=== PATIENT | male | born 1950 | race Caucasian/White ===

== ENCOUNTER 2017-02-09 14:26 | Emergency (ER) | payer OTHER ==
[~2017-02-09] VITALS: Ht 160 cm; Wt 82.0 kg
[2017-02-09 14:46] VITALS: Ht 160 cm; Wt 82.0 kg
[2017-02-09] MEDS ORDERED: HYDROCODONE/APAP (5/325) TAB PO ONE (16:00)
--- NOTE | 2017-02-09 16:26 | ERD ---
ER Documentation Chief Complaint Date/Time DATE: 02/09/17 TIME: 16:24 Chief Complaint Pt with R knee pain and back pain after fall in shower. no ko. HPI 66-year-old male status post slip and fall in the shower complaining of right knee pain, low back pain. Patient states he has a diffuse achy pain across the right anteromedial knee, worse with extension and better left pelvis region. He is able to weight-bear but with pain. Denies saddle anesthesia or loss of bowel bladder function. He denies any head injuries or neck pain. ROS All systems reviewed and are negative except as per history of present illness. Medications Home Meds Active Scripts Hydrocodone/Acetaminophen ([place] 5-325 Tablet) 1 Each Tablet, 1 TAB PO Q6H Y for PAIN, #10 TAB Prov:DEMETRIUS DELACRUZ PA-C 02/09/17 PMhx/Soc Medical and Surgical Hx: pt denies Medical Hx, pt denies Surgical Hx Hx Alcohol Use: No Hx Substance Use: No Hx Tobacco Use: No Physical Exam Vitals Vital Signs Date Time Temp Pulse Resp B/P Pulse Ox O2 Delivery O2 Flow Rate FiO2 02/09/17 14:46 97.4 62 18 189/79 96 Physical Exam General: Well-developed, well-nourished. The patient appears in no acute distress. HEENT: Head is normocephalic, atraumatic. No scleral icterus. Neck: Supple. Nontender. Lungs: Clear to auscultation. Normal air movement. Heart: Regular rate and rhythm. S1 and S2 are normal. No murmurs, gallops, or rubs. Abdomen: Soft, nontender, nondistended. Bowel sounds are normoactive. Neck: Paraspinal tenderness at L4-L5, there is no midline tenderness or crepitus. Patient is able to weight-bear, and flex his hip as well as extended. Extremities: Effusion noted on the right anterior medial knee, there is no joint line tenderness, no bony deformities, he is able to straight leg raise and flex fully. Neurologic: Alert and oriented 3. No focal deficits. Skin: Normal turgor. No rash or lesions. Results 24 hrs Current Medications Medications (Trade) Dose Ordered Sig/Edie Route PRN Reason Start Time Stop Time Status Last Admin Dose Admin Acetaminophen/ Hydrocodone Bitart ([place] (5/325)) 1 tab ONCE ONCE PO 02/09/17 16:00 02/09/17 16:01 DC 02/09/17 16:00 Procedures/MDM ED course: He was given [place] for pain. MDM: 66-year-old male status post slip and fall complains of right knee pain as well as low back pain, likely knee sprain with back pain. X-rays will be signed out to Gopal Hinson PA-C and attending physician. Departure Diagnosis: Primary Impression: Fall Additional Impressions: Knee injury Lumbar sprain Condition: Good DEMETRIUS DELACRUZ PA-C Feb 09, 2017 16:26
[2017-02-09] MEDS ORDERED: HYDR-906 PO (17:46)
--- NOTE | 2017-02-09 18:15 | RADRPT ---
PROCEDURE: XR Knee. CLINICAL INDICATION: Right knee pain. TECHNIQUE: Right knee x-rays, three views. COMPARISON: None. FINDINGS: Bony mineralization is normal. Bony cortices are intact. The knee joint is well maintained. Small osteophytes of the distal femur, proximal tibia and posterior margin of the patella are present. Ent hesophytes project from the patella and from the tibial tuberosity. There is small joint effusion i s observed. Vascular calcifications are seen within the soft tissues. IMPRESSION: No evidence of acute osseous abnormality. Mild degenerative changes of the knee. RPTAT: [facility] .Neva Koo MD, MD Date Time Electronically viewed and signed by .Neva Koo MD, on 02/09/2017 18:14 .T/
--- NOTE | 2017-02-09 18:17 | RADRPT ---
PROCEDURE: XR Pelvis. CLINICAL INDICATION: Pain status post fall. TECHNIQUE: Pelvic x-ray, single AP view. COMPARISON: None. FINDINGS: Bone density appears normal. Bony cortices are intact. The pelvic rim is intact. The hip and sacr oiliac joints are well maintained. Femoral head and neck contour is normal, bilaterally. Degenerat catrachito changes of the lower lumbar spine are present and evidenced by intervertebral disk narrowing, en dplate sclerosis and osteophyte formation. Vascular calcifications are seen within the soft tissues. IMPRESSION: No evidence of acute osseous abnormality Degenerative changes of the lower lumbar spine. RPTAT: [facility] .Neva Koo MD, MD Date Time Electronically viewed and signed by .Neva Koo MD, MD on 02/09/2017 18:17 .T/
--- NOTE | 2017-02-09 18:18 | RADRPT ---
PROCEDURE: XR Lumbar Spine. CLINICAL INDICATION: Pain status post fall. TECHNIQUE: Lumbar spine x-rays, 3 views. COMPARISON: None. FINDINGS: Bone density appears normal to decreased. Straightening of the lumbar spine is observed. Vertebral body height is are normal. Vertebral body alignment is maintained. Intervertebral disk narrowing w ith endplate sclerosis and osteophyte formation is most pronounced at L4-L5 and L5-S1. Prominent os teophytes are also seen at L2-L3 and L3-L4. The posterior elements are aligned. Paravertebral soft tissues are unremarkable. Abdominal aortic atherosclerotic calcification is present. IMPRESSION: L4-S1 degenerative disk disease. RPTAT: [facility] .Neva Koo MD, MD Date Time Electronically viewed and signed by .Neva Koo MD, on 02/09/2017 18:18 .T/
[2017-02-09 18:48] VITALS: BP 145/66; PULSE 80; RESP 20
== END 2017-02-09 18:49 | disposition home or self-care (01) ==
LOC: FTE 14:26
DX: S89.91XA Unspecified injury of right lower leg, initial encounter (principal); S33.9XXA Sprain of unspecified parts of lumbar spine and pelvis, initial encounter; W18.2XXA Fall in (into) shower or empty bathtub, initial encounter; Y92.9 Unspecified place or not applicable
CPT/HCPCS: 72100; 72170; 73562; Z7502; Z7610

== ENCOUNTER 2018-02-22 07:32 | Day surgery (SDC) | END 2018-02-22 17:50 | disposition short-term general hospital (02) ==